=== PATIENT | female | born 1985 | race Caucasian/White ===

== ENCOUNTER 2021-12-02 03:58 | Emergency (ER) | payer OTHER, SELFPAY ==
[2021-12-02 04:17] LABS: Bilirubin Negative (Negative); Blood, Urine Moderate (Negative); Clarity Hazy (Clear); Glucose, Urine (Dipstick) Negative (Negative); Ketone, Urine Trace mg/dL (Negative); Leukocyte Negative (Negative); Nitrite Negative (Negative); Protein, Urine (Dipstick) Negative (Neg-Trace); Urobilinogen 0.2 mg/dL (Less than 2)
[2021-12-02 04:18] LABS: Pregnancy Test - Urine (BHCG) Negative (Negative); Pregu Control Background? CLEAR/WHITE (CLR/WHITE); Pregu Control Bar Appear? YES (CONTROL BAR); Specific Gravity 1.017 (1.002-1.036); Specific Gravity, Urine 1.017 (1.002-1.036)
[2021-12-02] MEDS ORDERED: Sodium Chloride 0.9% 1,000 ML ONE (04:18)
[2021-12-02] MEDS ORDERED: Ondansetron PF 4 MG/2 ML Vial ONE (04:18)
[2021-12-02] MEDS ORDERED: Ketorolac Tromethamine 30 MG/ML VIAL ONE (04:18)
[2021-12-02 04:24] LABS: #Basophils 0.1 thou/uL (0.0-0.2); #Eosinphils 0.1 thou/uL (0.0-0.7); #Lymphocytes 2.5 thou/uL (1.20-3.40); #Neutrophils 13.1 thou/uL (1.40-6.50); %Basophils 0.6 % (0.0-1.0); %Eosinophils 0.7 % (0.0-10.0); %Lymphocytes 14.8 % (21.0-51.0); %Monocytes 5.8 % (0.0-10.0); %Neutrophils 78.1 % (42.0-75.0); Hemoglobin 15.1 g/dL (12.0-16.0); Mean Corpuscular HGB CONC 33.6 g/dL (32.0-36.0); Mean Corpuscular Hemoglobin 30.7 pg (27.0-31.0); Mean Corpuscular Volume 91.2 fL (78.0-98.0); Mean Platelet Volume 7.7 fL (7.4-10.4); Platelet Count 264 thou/uL (130-400); RBC Distribution Width 11.7 % (11.5-14.5); Red Blood Cell (RBC) Count 4.92 mill/uL (4.20-5.40); White Blood Cell (WBC) Count 16.7 thou/uL (4.8-10.8)
[2021-12-02 04:27] LABS: Bacteria/HPF 1+ HPF (None Seen); RBC/HPF 21-50 HPF (0-3)
[2021-12-02 04:44] LABS: ALT (SGPT) 19 U/L (8-55); AST (SGOT) 23 U/L (5-34); Albumin 4.7 g/dL (3.5-5.0); Alkaline Phosphatase 86 U/L (40-110); Anion Gap 17 mmol/L (10-20); BUN (Urea Nitrogen) 13 mg/dL (7.0-18.7); Bilirubin, Total 0.5 mg/dL (0.2-1.2); CK (CPK) 105 U/L (29-168); Calc. Creatinine Clearance 0 mL/min (70-130); Calcium 10.2 mg/dL (7.8-10.44); Carbon Dioxide 23 mmol/L (22-29); Chloride 103 mmol/L (98-107); Globulin 2.9 g/dL (2.4-3.5); Glucose 149 mg/dL (70-105); Potassium 3.4 mmol/L (3.5-5.1); Protein, Total 7.6 g/dL (6.0-8.3); Sodium 140 mmol/L (136-145)
[2021-12-02] MEDS ORDERED: Morphine 4 MG/ML VIAL ONE (04:58)
== END 2021-12-02 05:34 | disposition home or self-care (01) ==
LOC: MADERS 03:58
DX: N13.2 Hydronephrosis with renal and ureteral calculous obstruction (principal); N23 Unspecified renal colic
CPT/HCPCS: 74176; 80053; 81003; 81015; 81025; 82550; 85025; 96361; 96374; 96375; J1885; J2270; J2405; J7050